=== PATIENT | male | born 1980 | race Caucasian/White ===

== ENCOUNTER 2019-10-06 02:54 | Emergency (ER) | payer MEDICAID ==
[~2019-10-06] VITALS: Ht 188 cm; Wt 97.5 kg
[2019-10-06 03:04] VITALS: BP 134/86
--- NOTE | 2019-10-06 03:07 | NUR ---
PT CAME TO THE ED C/O L 2ND MOLAR PAIN. PT STATES HE WILL HAVE AN APPOINTMENT W/ HIS DENTIST ON WEDNESDAY. PT AAOX4,VSS, RESPIRATIONS EVEN AND UNLABORED ON W/ NAD NOTED. AWAITING FOR MD BAÑUELOS.
--- NOTE | 2019-10-06 03:48 | NUR ---
Patient discharged to home in stable condition. Written and verbal after care instructions given. Patient verbalizes understanding of instruction.
== END 2019-10-06 03:49 | disposition home or self-care (01) ==
LOC: ER 02:54
DX: K08.89 Other specified disorders of teeth and supporting structures (principal)

== ENCOUNTER 2019-10-27 14:22 | Emergency (ER) | payer MEDICAID ==
[~2019-10-27] VITALS: Ht 188 cm; Wt 97.5 kg
[2019-10-27 14:25] VITALS: BP 128/70
== END 2019-10-27 15:59 | disposition home or self-care (01) ==
LOC: ER 14:29
DX: L03.317 Cellulitis of buttock (principal); Z60.2 Problems related to living alone

== ENCOUNTER 2019-10-28 16:16 | Emergency (ER) | payer MEDICAID ==
[~2019-10-28] VITALS: Ht 180.3 cm; Wt 102.1 kg
[2019-10-28] MEDS ORDERED: diphenhydrAMINE HCL 50 MG CAPSULE ONE (16:45)
[2019-10-28] MEDS ORDERED: predniSONE 20 MG TABLET ONE (16:46)
[2019-10-28] MEDS ORDERED: ALBUTEROL FS 2.5 MG/3 ML VIAL.NEB ONE (16:50)
--- NOTE | 2019-10-28 16:52 | NUR ---
DIAMOND FROM HOME TO ER BED 12. AAOX4. NOT IN RESP DISTRESS, BREATHING EVEN AND UNLABORED, TALKING IN FULL SENTENCES. AMBULATORY. CAME IN FOR AN ALLERGIC REACTION AFTER TAKING BACTRIM. PER PT, SHE HAD SOB AND FELT DIFFICULT TO BREATHING. PT REPORTS THAT HE HAD RASHE ON IS ARMS AND ITCHING. PRIOR TO ARRIVAL, PT WAS GIVEN SHOT OF EPENEPHRINE BY THE EMS. PT IS VERBALIZED THAT HE FEELS BETTER AFTER THE SHOT. MD WAS AT THE BEDSIDE FOR EVAL. ORDERS RECEIVED NOTED AND CARRIED OUT
[2019-10-28] MEDS ORDERED: ALBUTEROL FS 2.5 MG/3 ML VIAL.NEB NEB ONE (17:00)
[2019-10-28] MEDS ORDERED: predniSONE 50 MG TABLET PO ONE (17:00)
[2019-10-28] MEDS ORDERED: diphenhydrAMINE HCL 25 MG CAPSULE PO ONE (17:00)
--- NOTE | 2019-10-28 18:03 | NUR ---
PT VERBALIZED THAT HE FEELS BETTER. PT IS TALKING CLEARLY IN FUL SENTENCES, BREATHING EVEN AND UNLABORED
[2019-10-28 18:07] VITALS: BP 131/77
--- NOTE | 2019-10-28 18:07 | NUR ---
Patient discharged to home in stable condition. Written and verbal after care instructions given. Patient verbalizes understanding of instruction. Pt ambulatory with a steady gait
== END 2019-10-28 18:08 | disposition home or self-care (01) ==
LOC: ER 16:51
DX: R06.02 Shortness of breath (principal); T36.8X5A Adverse effect of other systemic antibiotics, initial encounter; Z88.2 Allergy status to sulfonamides; Z60.2 Problems related to living alone; Y92.89 Other specified places as the place of occurrence of the external cause
CPT/HCPCS: 71045; 94640; 99283; J7512; Q0163

== ENCOUNTER 2020-08-28 04:31 | Emergency (ER) | payer OTHER ==
[~2020-08-28] VITALS: Ht 188 cm; Wt 99.8 kg
--- NOTE | 2020-08-28 04:45 | NUR ---
PATIENT C/O MID ABD PAIN SINCE LAST NIGHT, DENIES ANY N/V/D. STATES PAIN IS CAUSING HIM TO STAY AWAY AT NIGHT. PATIENT RR EVEN AND UNLABORED, NO SIGNS OF SOB NOTED, PATIENT CONNECTED TO BAR PORTER AND POX. VSS, WILL CONTINUE TO MONITOR.
[2020-08-28] MEDS ORDERED: IV NS 0.9% 1,000 ML BAG IV ONE (05:00)
[2020-08-28] MEDS ORDERED: IOHEXOL-300 100 ML VIAL IV ONE (05:00)
[2020-08-28] MEDS ORDERED: IV NS 0.9% 250 ML IV ONE (05:01)
[2020-08-28 05:14] LABS: BASOPHILS % (AUTO) 0.5 % (0.0-2.0); EOSINOPHILS % (AUTO) 5.9 % (0.0-6.0); HEMATOCRIT 42 % (39-51); HEMOGLOBIN 14.2 g/dL (13.5-17.5); LYMPHOCYTES # (AUTO) 1.2 K/uL (0.8-4.8); LYMPHOCYTES % (AUTO) 24.9 % (20.0-44.0); MEAN CORPUSCULAR HGB CONC 34 g/dl (31.0-36.0); MEAN CORPUSCULAR VOLUME 96 fL (80-96); MONOCYTES # (AUTO) 0.4 K/uL (0.1-1.30); MONOCYTES % (AUTO) 7.9 % (2.0-12.0); NEUTROPHILS # (AUTO) 2.9 K/uL (1.8-8.9); NEUTROPHILS % (AUTO) 60.8 % (43.0-81.0); PLATELET COUNT (AUTO) 171 K/uL (150-450); RED BLOOD CELL COUNT(AUTO) 4.41 MIL/uL (4.5-6.0); WHITE BLOOD COUNT (AUTO) 4.8 K/uL (4.3-11.0)
[2020-08-28 05:17] LABS: BILIRUBIN,URINE SMALL (NEGATIVE); COLOR,URINE YELLOW (YELLOW); LEUKOCYTE ESTERASE ,URINE Negative (NEGATIVE); NITRITE, URINE Negative (NEGATIVE); PROTEIN,URINE Negative (NEGATIVE); UGLUCOSE Negative (NEGATIVE); UROBILINOGEN,URINE 0.2 EU/dL (0.2)
[2020-08-28 05:24] LABS: CALCIUM, SERUM 8.5 mg/dL (8.5-10.1); CARBON DIOXIDE 25 mmol/L (21-32); CHLORIDE 105 mmol/L (98-107); CREATININE 0.8 mg/dL (0.6-1.3); GLUCOSE 98 mg/dL (74-106); POTASSIUM 3.7 mmol/L (3.5-5.1); SODIUM SERUM 138 mmol/L (136-145); UREA NITROGEN, BLOOD 7 mg/dL (7-18)
[2020-08-28 05:29] LABS: BACTERIA,URINE None seen /HPF (None Seen); RBC,URINE 0-2 /HPF (0-2); SQUAMOUS EPITHELIAL CELL,UR Rare /HPF (None Seen); WBC,URINE 0-2 /HPF (0-3)
[2020-08-28 05:30] LABS: ALANINE AMINOTRANSFERASE 34 U/L (12-78); ALBUMIN 3.5 g/dL (3.4-5.0); ALKALINE PHOSPHATASE 54 U/L (46-116); ASPARTATE AMINOTRANSFERASE 32 U/L (15-37); BILIRUBIN,DIRECT 0.2 mg/dL (0.0-0.2); BILIRUBIN,TOTAL 0.8 mg/dL (0.2-1.0); LIPASE 54 U/L (73-393); TOTAL PROTEIN, SERUM 6.6 g/dL (6.4-8.2)
--- NOTE | 2020-08-28 05:30 | NUR ---
PATIENT TAKEN TO CT
--- NOTE | 2020-08-28 05:42 | NUR ---
PATIENT RETURNED FROM CT
[2020-08-28 06:36] VITALS: BP 128/72
--- NOTE | 2020-08-28 06:36 | NUR ---
PT IS MEDICALLY STBALE FOR D/C, IV removed. Catheter intact and site benign. Pressure and 4x4 applied to site. No bleeding noted.Patient discharged to home in stable condition. Written and verbal after care instructions given. Patient verbalizes understanding of instruction.
== END 2020-08-28 06:37 | disposition home or self-care (01) ==
LOC: ER 04:31
DX: R10.31 Right lower quadrant pain (principal); K59.00 Constipation, unspecified; Z88.2 Allergy status to sulfonamides; Z60.2 Problems related to living alone
CPT/HCPCS: 36415; 74177; 80048; 80076; 81001; 83690; 84484; 85025; 85730; 96360; 99285; J7030; J7050; Q9967